=== PATIENT | male | born 1945 | race Caucasian/White ===

== ENCOUNTER 2018-02-18 12:19 | Emergency (ER) | payer OTHER ==
[2018-02-18 12:24] VITALS: BP 124/79; TEMP 96.3; BMI 22.4
[2018-02-18] MEDS ORDERED: SODIUM CHLORIDE 1,000 ML IV STA ×2 (14:38→14:45)
--- NOTE | 2018-02-18 14:48 | CT ---
EXAM: CT chest with contrast. HISTORY: Cough. Right sided chest pain. COMPARISON: None available. TECHNIQUE: Multiple axial images of the chest were obtained following intravenous administration of 75 mL of Visipaque 320, low osmolar. Images were reformatted in the sagittal and coronal planes. FINDINGS: There has been previous sternotomy. Heart size is normal. No pericardial effusion identi fied. There is no evidence for aortic dissection. No lymphadenopathy detected. Calcified mediastinal and hilar lymph nodes are present. There are scooter cified granulomatous changes present. No consolidation, pleural effusion or pneumothorax identified. No acute abnormality detected in the upper abdomen. No acute osseous abnormality is identified. IMPRESSION: No acute cardiopulmonary process.
--- NOTE | 2018-02-18 15:16 | ED.PDOC ---
General ED Provider: Dr. FOREST FITZGERALD Chief Complaint: Cough Stated Complaint: cough Time Seen by Physician: 12:30 Mode of Arrival: Walk-In Information Source: Patient Nursing and Triage Documentation Reviewed and Agree: Yes Reviewed sepsis parameters & appropriate labs ordered?: Yes System Inflammatory Response Syndrome: Not Applicable Sepsis Protocol: For patient's 13 years and over: Temp is 96.8 and below OR 101 and greater Pulse >90 BPM Resp >20/minute Acutely Altered Mental Status Are patient's symptoms suggestive of a new infection, such as: -Pneumonia -Skin, Soft Tissue -Endocarditis -UTI -Bone, Joint Infection -Implantable Device -Acute Abdominal Infection -Wound Infection -Meningitis -Blood Stream Catheter Infection -Unknown System Inflammatory Response Syndrome: Not Applicable Respiratory Complaint Exam - Shortness of Air Complaint/Exam Onset/Duration: 1 week Symptoms Are: Still present Timing: Intermittent Initial Severity: Mild Current Severity: Mild Aggravating: Reports: None Alleviating: Reports: None Associated Signs and Symptoms: Reports: Cough History of Healthcare-Acquired Pneumonia: No Pulmonary Embolism Risk Factors: Reports: None Cardiac Risk Factors: Reports: None Pseudomonas Risk Factors: Reports: None Tuberculosis Risk Factors: Reports: None Home Oxygen Use: No Recent Stress Test: No Recent Echo/LV Function: No Stridor Present: No Tracheal Deviation: No Subcutaneous Emphysema: No Accessory Muscle Use: No Retractions: Not Present Diminished Breath Sounds: No Prolonged Expiratory Phase: No Unable to Speak Full Sentences: No Fatigue: No Leg Swelling: No Vish's Sign Present: No Grunting Respirations: No Kussmaul Respirations: No Differential Diagnoses: Chest Wall Pain, Pneumonia Review of Systems - Review Of Systems Constitutional: Reports: No symptoms Eyes: Reports: No symptoms Ears, Nose, Mouth, Throat: Reports: No symptoms Respiratory: Reports: Cough Cardiac: Reports: No symptoms GI: Reports: No symptoms : Reports: No symptoms Musculoskeletal: Reports: No symptoms Skin: Reports: No symptoms Neurological: Reports: No symptoms Endocrine: Reports: No symptoms Hematologic/Lymphatic: Reports: No symptoms All Other Systems: Reviewed and Negative Past Medical History - Past Medical History Previously Healthy: Yes Endocrine: Reports: None Cardiovascular: Reports: CAD Respiratory: Reports: None Hematological: Reports: None Gastrointestinal: Reports: None Genitourinary: Reports: None Neuro/Psych: Reports: None Musculoskeletal: Reports: None Cancer: Reports: None - Surgical History General Surgical History: Reports: None - Family History Family History: Reports: None - Social History Smoking Status: Never smoker Hx Substance Use: No Alcohol Screening: None Physical Exam - Physical Exam Appearance: Well-appearing, No pain distress, Well-nourished Eyes: GARRETT, EOMI, Conjunctiva clear ENT: Ears normal, Nose normal, Oropharynx normal Respiratory: Airway patent, Breath sounds clear, Breath sounds equal, Respirations nonlabored Cardiovascular: RRR, Pulses normal, No rub, No murmur GI/: Soft, Nontender, No masses, Bowel sounds normal, No Organomegaly Musculoskeletal: Normal strength, ROM intact, No edema, No calf tenderness Skin: Warm, Dry, Normal color Neurological: Sensation intact, Motor intact, Reflexes intact, Cranial nerves intact, Alert, Oriented Psychiatric: Affect appropriate, Mood appropriate Interpretation - Radiology Interpretation Radiology Interpretation By: Radiologist Radiology Results: No acute changes Physician Notification - Case Discussed Physician Notified: tanvir Time of Notification: 15:16 Critical Care Note - Critical Care Note Total Time (mins): 0 Course - Course Hematology/Chemistry: 02/18/18 13:15 02/18/18 13:15 Orders, Labs, Meds: Lab Review 02/18/18 02/18/18 13:15 13:15 WBC 7.10 RBC 4.39 L Hgb 14.5 Hct 41.3 L MCV 94.1 H MCH 33.0 H MCHC 35.1 RDW Coeff of Rehan 12.7 Plt Count 175 Immature Gran % (Auto) 0.3 Neut % (Auto) 50.1 Lymph % (Auto) 36.9 [place] % (Auto) 8.5 Eos % (Auto) 3.5 Baso % (Auto) 0.7 Immature Gran # (Auto) 0.0 Neut # (Auto) 3.6 Lymph # (Auto) 2.6 [place] # (Auto) 0.6 Eos # (Auto) 0.3 Baso # (Auto) 0.1 Sodium 140 Potassium 4.5 Chloride 104 Carbon Dioxide 29 Anion Gap 11.5 BUN 21 H Creatinine 1.55 H Estimated GFR (MDRD) 44.00 BUN/Creatinine Ratio 13.54 Glucose 92 Calcium 9.4 Total Bilirubin 0.8 AST 28 ALT 20 Alkaline Phosphatase 72 Total Protein 6.9 Albumin 3.8 Globulin 3.1 Albumin/Globulin Ratio 1.23 Orders Category Date Time Status NPO REMINDER: IMAGING ONCE CARE 02/18/18 13:09 Completed CBC W/ AUTO DIFF Stat LAB 02/18/18 13:15 Completed COMPREHENSIVE METABOLIC PANEL Stat LAB 02/18/18 13:15 Completed PSA [PROSTATE SPECIFIC ANTIGEN SCRN] Stat LAB 02/18/18 13:05 Received Sodium Chloride 0.9% [Sodium Chloride] 1,000 ml MEDS 02/18/18 14:[address] CHEST W/CONTRAST Stat RADS 02/18/18 13:08 Completed Medications Generic Name Dose Route Start Last Admin Trade Name Jhonatan PRN Reason Stop Dose Admin Sodium Chloride 1,000 mls @ 1,000 mls/hr 02/18/18 14:45 02/18/18 14:46 Sodium Chloride IV 02/18/18 15:44 1,000 mls/hr BOLUS STA Administration Vital Signs: Temp Pulse Resp BP Pulse Ox 02/18/18 12:20 96.3 F L 78 18 124/79 96 Departure - Departure Time of Disposition: 15:16 Disposition: HOME SELF-CARE Discharge Problem: Cough, Renal insufficiency, mild Instructions: Chronic Cough (ED) Condition: Good Pt referred to PMD for follow-up: Yes IPMP verified?: No Additional Instructions: Please call your Family Physician as soon as possible to schedule a follow-up appointment. Allergies/Adverse Reactions: Allergies No Known Allergies Allergy (Verified 02/18/18 12:24) Home Medications: Ambulatory Orders Aspirin [Aspirin Chewable] 81 mg PO DAILYWM 02/18/18 Atorvastatin Calcium [Lipitor] 20 mg PO BEDTIME 02/18/18 Ranolazine [Ranexa] 500 mg PO BID 02/18/18 Disposition Discussed With: Patient, Family
== END 2018-02-18 15:39 | disposition home or self-care (01) ==
LOC: ED 12:19
DX: R05 Cough (principal); N28.9 Disorder of kidney and ureter, unspecified; I25.10 Atherosclerotic heart disease of native coronary artery without angina pectoris
CPT/HCPCS: 36415; 80053; 85025; 96360; 99283